=== PATIENT | female | born 1955 | race Caucasian/White ===

== ENCOUNTER 2022-02-04 11:59 | Inpatient (IN) | payer OTHER, MEDICAID ==
[~2022-02-04] VITALS: Ht 157.5 cm; Wt 35.4 kg
[2022-02-04 12:12] VITALS: BP_SYST 100
[2022-02-04] MEDS ORDERED: NS 500 ML IV ONE (12:15)
[2022-02-04 13:16] LABS: BASOPHILS # (AUTO) 0.1 K/uL (0.0-0.2); BASOPHILS % (AUTO) 1.7 % (0.0-2.0); HEMATOCRIT 44.7 % (36-48); HEMOGLOBIN 14.8 g/dL (12.0-16.0); LYMPHOCYTES # (AUTO) 0.2 K/uL (1.0-5.5); LYMPHOCYTES % (AUTO) 3.3 % (20.5-51.5); MEAN CORPUSCULAR HEMOGLOBIN 32 pg (27-31); MEAN CORPUSCULAR HGB CONC 33 % (32-36); MEAN CORPUSCULAR VOLUME 97 fL (79.0-98.0); MONOCYTES # (AUTO) 0.2 K/uL (0.0-1.0); MONOCYTES % (AUTO) 3.8 % (1.7-9.3); NEUTROPHILS # (AUTO) 5.5 K/uL (1.8-7.7); NEUTROPHILS % (AUTO) 91.2 % (40.0-70.0); PLATELET COUNT (AUTO) 189 K/uL (130-430); RED BLOOD CELL COUNT(AUTO) 4.63 MIL/uL (4.2-6.2); WHITE BLOOD COUNT (AUTO) 6.1 K/uL (4.8-10.8)
[2022-02-04 13:30] LABS: CALCIUM 9.2 mg/dL (8.4-11.0); CREATININE 0.68 mg/dL (0.55-1.30); GLUCOSE 109 mg/dL (70-99); POTASSIUM 3.7 mmol/L (3.5-5.1); UREA NITROGEN, BLOOD 8 mg/dL (8-21)
[2022-02-04 13:44] LABS: ALANINE AMINOTRANSFERASE 28 U/L (12-78); ALBUMIN 3.6 g/dL (3.4-4.8); ANION GAP 9 (5-15); ASPARTATE AMINOTRANSFERASE 34 U/L (10-37); FREE T4 (FREE THYROXINE) 1.1 ng/dl (0.8-1.5); THYROID STIMULATING HORMONE 2.89 uIu/mL (0.36-3.74); TOTAL BILIRUBIN 0.8 mg/dL (0.0-1.0)
[2022-02-04 13:52] LABS: SODIUM SERUM 115 mmol/L (136-145)
[2022-02-04 13:53] LABS: CHLORIDE 82 mmol/L (98-107); GFR AFRICAN AMERICAN 111 mL/min (>90)
[2022-02-04] MEDS ORDERED: NACL 0.9% 1,000 ML IV ONE ×2 (14:00→15:00)
[2022-02-04 14:08] LABS: BILIRUBIN,URINE NEGATIVE (NEGATIVE); BLOOD, URINE NEGATIVE (NEGATIVE); CLARITY/URINE CLEAR (CLEAR); COLOR,URINE YELLOW (YELLOW); GLUCOSE,URINE NEGATIVE (NEGATIVE); KETONES,URINE NEGATIVE (NEGATIVE); LEUKOCYTE ESTERASE ,URINE NEGATIVE (NEGATIVE); NITRITE, URINE NEGATIVE (NEGATIVE); PROTEIN URINE NEGATIVE (NEGATIVE)
[2022-02-04] MEDS ORDERED: cefTRIAXone 1 GM in D5W 50 ML IV ONE (15:00)
[2022-02-04] MEDS ORDERED: DOXYCYCLINE HYCLATE 100 MG in D5W 100 ML IV ONE (15:00)
[2022-02-04] MEDS ORDERED: IBAN150T21 PO (15:40)
[2022-02-04] MEDS ORDERED: LEVO25TA7 PO (15:40)
[2022-02-04] MEDS ORDERED: NACL 0.9% 1,000 ML IV SCH (15:45)
[2022-02-04 17:37] VITALS: BP_SYST 141
[2022-02-04 18:35] LABS: CALCIUM 8.7 mg/dL (8.4-11.0); CREATININE 0.58 mg/dL (0.55-1.30); POTASSIUM 3.5 mmol/L (3.5-5.1)
[2022-02-04 20:10] VITALS: BP_SYST 135
[2022-02-05 00:20] LABS: CALCIUM 8.4 mg/dL (8.4-11.0); CREATININE 0.5 mg/dL (0.55-1.30); POTASSIUM 3.9 mmol/L (3.5-5.1)
[2022-02-05 01:17] VITALS: BP_SYST 135
[2022-02-05 07:22] LABS: CALCIUM 8.5 mg/dL (8.4-11.0); CREATININE 0.53 mg/dL (0.55-1.30); POTASSIUM 3.8 mmol/L (3.5-5.1)
[2022-02-05 11:21] VITALS: BP_SYST 106
[2022-02-05 12:34] LABS: CALCIUM 8.7 mg/dL (8.4-11.0); CREATININE 0.54 mg/dL (0.55-1.30); POTASSIUM 3.7 mmol/L (3.5-5.1)
[2022-02-05 15:24] VITALS: BP_SYST 117
[2022-02-05 19:45] VITALS: BP_SYST 113
[2022-02-06] VITALS: BP_SYST 122
[2022-02-06 08:00] VITALS: BP_SYST 103
[2022-02-06 13:48] VITALS: BP_SYST 110
== END 2022-02-06 14:28 | disposition home or self-care (01) | DRG 640 ==
LOC: SED 11:59 → STU 15:41
PROVIDERS: ADMIT Internal Medicine Hospice and Palliative Medicine; ATTEND Internal Medicine Hospice and Palliative Medicine
DX: E87.1 Hypo-osmolality and hyponatremia (principal); G93.41 Metabolic encephalopathy; F79 Unspecified intellectual disabilities; E87.8 Other disorders of electrolyte and fluid balance, not elsewhere classified; I34.0 Nonrheumatic mitral (valve) insufficiency; Z20.822 Contact with and (suspected) exposure to COVID-19; Z74.01 Bed confinement status
CPT/HCPCS: 36415; 71045; 80048; 80053; 81003; 82533; 83605; 83930; 83935; 84439; 84443; 84484; 85025; 87040; 87086; 92610-GN; 93005; 96361; 96365; 96367; 99285; G0378; J0696; J3490; J7060